=== PATIENT | female | born 1930 | race Caucasian/White ===

== ENCOUNTER 2016-09-06 18:39 | Emergency (ER) | payer OTHER ==
[~2016-09-06] VITALS: Ht 160 cm; Wt 63.5 kg
--- NOTE | ~2016-09-06 | EKG ---
[address] [place] [address] ELECTROCARDIOGRAM REPORT Name: ISSAANGELINA LOFTON Room #: DEP [facility]#: [id number] Admission: 09/06/16 Attend Phys: Discharge: 09/06/16 Date of : 32 Report #: [id number] THIS REPORT FOR: //name// [facility] ED Test Date: 2016-09-06 Test Time: 18:43:17 Pat Name: ANGELINA PARSONS Department: Room: Gender: F Surgical Specialist: LEANNE : 1930 Requested By: Ruy Patterson Order Number: [id number] MD: José Luis Goode Measurements Intervals [place] Rate: 73 P: -30 [place]: 176 QRS: -43 QRSD: 97 T: 44 QT: 409 QTc: 451 Interpretive Statements Sinus rhythm Left ventricular hypertrophy Inferior infarct, old Poor R wave progression Compared to ECG 03/16/2015 13:27:07 No significant change was found Electronically Signed On 09-07-2016 8:45:36 CDT by José Luis Goode [email or web address] <ELECTRONICALLY SIGNED> By: José Luis Goode MD, [facility] 09/07/16 0845 1843 1843 José Luis Goode MD, [facility] /EPI
[~2016-09-06 18:39] MED LIST: ACTOS15 MG PO; ASPIRIN325; COMBIVENT INH; DILTIAZEM ER300 MG PO; FLUZONE HI180 MCG/02 IM; GLIPIZIDE ER5 MG PO; GLUCOPHAGE XR750 MG PO; LUMIGAN2.5 ML OP; PLAVIX 75 MG TA75 MG PO; SIMBRINZA 1%-0.28 ML OP; SYMBICORT80 MCG/4.1 INH; ZESTORETIC; ZETIA10 MG PO
[2016-09-06] MEDS ORDERED: ASPIRIN81 M2 PO (19:05)
[2016-09-06] MEDS ORDERED: LISINOPRIL20 MG PO (19:06)
[2016-09-06] MEDS ORDERED: GLUCOPHAGE850 MG PO (19:07)
[2016-09-06] MEDS ORDERED: XALATAN2.5 ML OPHTHALMIC (19:08)
[2016-09-06] MEDS ORDERED: TYLENOL325 MG PO (19:09)
[2016-09-06 19:12] LABS: HEMATOCRIT 35.4 % (37.0-47.0); HEMOGLOBIN 11.9 gm/dL (12.0-15.0); MCHC 33.6 g/dL (28.0-37.0); MCV 95.1 fL (80.0-100.0); RBC 3.72 mil/uL (4.20-5.00); WBC 7.8 thou/uL (4.0-11.0)
[2016-09-06 19:14] LABS: URINE BILIRUBIN NEGATIVE (Negative); URINE BLOOD TRACE (Negative); URINE COLOR YELLOW; URINE GLUCOSE-RANDOM* NEGATIVE (Negative); URINE KETONES NEGATIVE (Negative); URINE LEUKOCYTES-REFLEX TRACE (Negative); URINE PROTEIN (DIPSTICK) NEGATIVE (Negative); URINE SPECIFIC GRAVITY 1.015 (1.003-1.035); URINE UROBILINOGEN 0.2 E.U./dl (0.2-1.0)
[2016-09-06 19:15] LABS: ANION GAP 5 mmol/L (7-16); BUN 12 mg/dL (7-18); CALCIUM 8.9 mg/dL (8.5-10.1); CHLORIDE 101 mmol/L (98-107); CO2 29 mmol/L (21-32); CREATININE 0.8 mg/dL (0.6-1.0); GLUCOSE 165 mg/dL (74-106); POTASSIUM 4.2 mmol/L (3.5-5.1); SODIUM 135 mmol/L (136-145)
[2016-09-06] MEDS ORDERED: ALBUTEROL2.5 MG/31 INH (19:15)
[2016-09-06] MEDS ORDERED: ROBITUSSIN100 MG/53 PO (19:16)
[2016-09-06 19:23] LABS: TROPONIN-I < 0.04 ng/mL (<0.04-0.07)
[2016-09-06 20:42] VITALS: BP 141/59
== END 2016-09-06 20:36 | disposition home or self-care (01) ==
LOC: ER 18:39
PROVIDERS: Emergency Medicine
DX: F03.90 Unspecified dementia, unspecified severity, without behavioral disturbance, psychotic disturbance, mood disturbance, and anxiety (principal); I10 Essential (primary) hypertension; E78.5 Hyperlipidemia, unspecified; E11.9 Type 2 diabetes mellitus without complications; J44.9 Chronic obstructive pulmonary disease, unspecified; Z95.5 Presence of coronary angioplasty implant and graft